=== PATIENT | female | born 1990 | race Caucasian/White ===

== ENCOUNTER 2018-06-25 15:05 | Emergency (ER) | payer MEDICAID ==
[~2018-06-25] VITALS: Ht 167.6 cm; Wt 78.2 kg
[~2018-06-25 15:05] MED LIST: FERR1TAB24 PO; PREN1TAB22 PO
[2018-06-25] MEDS ORDERED: ACETAMINOPHEN 325 MG TABLET PO ONE (16:00)
[2018-06-25 16:36] VITALS: BP 135/83
== END 2018-06-25 16:50 | disposition home or self-care (01) ==
LOC: EMS 15:06
DX: O9A.219 Injury, poisoning and certain other consequences of external causes complicating pregnancy, unspecified trimester (principal); S13.4XXA Sprain of ligaments of cervical spine, initial encounter; V49.9XXA Car occupant (driver) (passenger) injured in unspecified traffic accident, initial encounter; Y93.89 Activity, other specified; Y92.488 Other paved roadways as the place of occurrence of the external cause; Y99.8 Other external cause status
CPT/HCPCS: 93005

== ENCOUNTER 2018-08-27 21:00 | Emergency (ER) | payer MEDICAID ==
[~2018-08-27] VITALS: Ht 167.6 cm; Wt 77.3 kg
[2018-08-27 21:06] VITALS: BP 148/53
== END 2018-08-27 23:49 | disposition left against medical advice (07) ==
LOC: EMS 21:01
DX: H57.89 Other specified disorders of eye and adnexa (principal); Z53.21 Procedure and treatment not carried out due to patient leaving prior to being seen by health care provider